=== PATIENT | female | born 1960 | race Caucasian/White ===

== ENCOUNTER 2017-08-24 11:46 | Day surgery (SDC) | payer BC ==
[~2017-08-24 11:46] MED LIST: ACETAMINOPHEN 1,000 MG/100 ML BTL IV ONE; FAMOTIDINE 20MG TABLET PO ONE; MECLIZINE 25 MG TABLET PO ONE; METOCLOPRAMIDE 10 MG TABLET PO ONE
[2017-08-24] MEDS ORDERED: CELECOXIB 100 MG CAPSULE PO ONE (11:47)
[2017-08-24] MEDS ORDERED: *PACU ONLY* KETAMINE HCL 10 MG/ML (20ML) VIAL IV ONE (11:47)
[2017-08-24] MEDS ORDERED: LABETALOL HCL 5MG/ML, 20ML VIAL IV ONE (11:47)
[2017-08-24] MEDS ORDERED: BUPIVACAINE 0.25% W/EPI MPF 30ML VIAL IVP ONE (11:47)
[2017-08-24] MEDS ORDERED: SCOPOLAMINE 1 PATCH TDSY TD ONE (11:47)
[2017-08-24] MEDS ORDERED: PROPOFOL 10 MG/ML VIAL IV ONE (11:47)
[2017-08-24] MEDS ORDERED: LIDOCAINE 2% MDV (20MG/ML) 20ML VIAL IV ONE (11:47)
--- NOTE | 2017-08-25 12:40 | Operative Note ---
DATE OF SERVICE: 08/24/2017. DATE OF SURGERY: 08/24/2017. Surgeon: Jose Luis Boles DO. Referring Physician: Talon Elizalde DO. PREOPERATIVE DIAGNOSES: 1. Torn medial meniscus of the left knee. 2. Chondromalacia of the left knee. POSTOPERATIVE DIAGNOSES: 1. Torn medial and lateral meniscus, left knee. 2. Chondromalacia, medial femoral condyle, lateral femoral condyle, and patella, left knee. OPERATION: 1. Medial and lateral meniscectomy, left knee. 2. Arthroscopic chondroplasty, medial femoral condyle, lateral femoral condyle, patella, left knee. PROCEDURE: This 57-year-old female was taken to the operating room and placed in the supine position on the operating room table. General anesthesia was performed. The left lower extremity was elevated. It was exsanguinated and the tourniquet inflated to 300 mmHg. An arthroscopic knee gregory applied. Left knee prepped, cleansed, and draped in the usual sterile fashion. An inferolateral portal was established with a 4 mm arthroscope, and initial evaluation of the joint demonstrated normal appearance of the suprapatellar pouch, but she did have rather extensive grade 3 changes noted to the patella with the trochlea being relatively normal, with a significant amount of loose, fragmented articular cartilage being seen on the patella. Required chondroplasty, and this was performed to stabilize the articular cartilage there. The medial compartment was entered, and a degenerative type tear of the posterior horn of the medial meniscus was present, and that was resected with a rotating shaver and basket forceps. We resected to the apex of the tear, which was about 3, possibly 4 mm deep, and then smoothed and tapered in each direction to restore stability to the remainder of the meniscus. The weightbearing surface of the medial femoral condyle demonstrated grade 2 changes with loose fragments of articular cartilage being present. This went all the way from the meniscal rest until as far back as could be visualized, and after smoothing it over, it appeared to be satisfactory. The intercondylar notch was examined and found to be normal. The lateral compartment was entered, and grade 2 chondromalacia of the weightbearing surface of the lateral femoral condyle was also present. This was a small lesion, being approximately a cm and a half in diameter. This was smoothed with the rotating shaver. The joint was then copiously irrigated and suctioned. The patient also had a small radial tear of the lateral meniscus at about the 2 or 3 o'clock position, and the tear was resected, and it was smoothed and contoured, then probed and confirmed to be stable. The joint was then copiously irrigated and suctioned. The instruments were removed. Portals were infiltrated with 0.25% Marcaine with epinephrine. Sterile dressings applied. Tourniquet was released and the patient taken to the recovery room in satisfactory condition. Gross Pathology: Patient demonstrated grade 2 chondromalacia throughout the knee. All surfaces demonstrating grade 2 changes. In addition, there was evidence of a tear of both the medial and lateral menisci of the left knee. GUZMAND
== END 2017-08-24 14:30 | disposition home or self-care (01) ==
LOC: SUR 11:46
PROVIDERS: ATTEND Orthopaedic Surgery
DX: S83.282A Other tear of lateral meniscus, current injury, left knee, initial encounter (principal); S83.242A Other tear of medial meniscus, current injury, left knee, initial encounter; M22.42 Chondromalacia patellae, left knee; I10 Essential (primary) hypertension; I48.2 Chronic atrial fibrillation; Z79.01 Long term (current) use of anticoagulants

== ENCOUNTER 2017-09-05 13:49 | Emergency (ER) | payer BC ==
--- NOTE | 2017-09-05 14:06 | Emergency Department Record ---
History of Present Illness - General Chief complaint: Lower Extremity Pain Stated complaint: RT LEG PAIN Time Seen by Provider: 09/05/17 14:00 Source: Patient Mode of Arrival: Ambulatory Limitations: No limitations - History of Present Illness Initial comments: 57 yo female presents with left thigh pain for starting yesterday. She has medial pain that is sharp. Several years ago she had a DVT after an ankle surgery. She was treated with Xarelto at that time. NO cough, chest pain or shortness of breath. Her surgery was on the left knee. She is doing very well on the left without any pain or swelling. No redness to the leg. MD Complaint: Extremity pain Onset/Timin -: Days(s) (2) Location: Right, Thigh History of Same: Yes Radiation: Proximal Quality: Aching Improves with: Immobilization Worsens with: Palpation Associated Symptoms: Denies other symptoms - Related Data Home Medications Medication Instructions Recorded Confirmed Last Taken Aspirin/Acetaminophen/Caffeine 1 each PO ASDIR 09/05/17 09/05/17 09/05/17 [Excedrin Extra Strength Caplet] Cholecalciferol (Vitamin D3) 50,000 unit PO DAILY 09/05/17 09/05/17 09/05/17 [Vitamin D] Hydrocodone/Acetaminophen [[place] 1 each PO ASDIR 09/05/17 09/05/17 09/05/17 7.5-325 Tablet] Metoprolol Succinate [Toprol Xl] 25 mg PO DAILY 09/05/17 09/05/17 09/05/17 Multivitamin [Daily Multiple 1 each PO DAILY 09/05/17 09/05/17 09/05/17 Vitamin] Omeprazole [Prilosec] 20 mg PO DAILY 09/05/17 09/05/17 09/05/17 Allergies Allergy/AdvReac Type Severity Reaction Status Date / Time levalbuterol [From Xopenex] Allergy SHORTNESS Verified 09/05/17 14:00 OF BREATH nitrous oxide Allergy NAUSEA AND Verified 09/05/17 14:00 VOMITING nortriptyline [From Pamelor] Allergy RAPID Verified 09/05/17 14:00 HEART RATE guaifenesin [From Entex LA] AdvReac PT UNSURE Verified 09/05/17 14:00 OF REACTION latex AdvReac RASH Verified 09/05/17 14:00 metronidazole [From Flagyl] AdvReac HEADACHE Verified 09/05/17 14:00 morphine AdvReac NAUSEA AND Verified 09/05/17 14:00 VOMITING phenylephrine [From Entex LA] AdvReac PT UNSURE Verified 09/05/17 14:00 OF REACTION phenylpropanolamine AdvReac PT UNSURE Verified 09/05/17 14:00 [From Entex LA] OF REACTION tramadol [From Ultram] AdvReac DIFFICULTY Verified 09/05/17 14:00 BREATHING warfarin [From Coumadin] AdvReac DIZZINESS Verified 09/05/17 14:00 Travel Screening - Travel/Exposure Within Last 30 Days Have you traveled within the last 30 days?: No - Travel/Exposure Within Last Year Have you traveled outside the [place] in the last year?: No - Additonal Travel Details Have you been exposed to anyone with a communicable illness?: No - Travel Symptoms Symptom Screening: None Review of Systems Constitutional: Denies: Chills, Fever, Weakness Eyes: Denies: Eye discharge ENT: Denies: Congestion, Throat pain Respiratory: Denies: Cough, Dyspnea, Hemoptysis Cardiovascular: Denies: Chest pain, Palpitations, Syncope Endocrine: Denies: Fatigue Gastrointestinal: Denies: Abdominal pain, Diarrhea, Nausea, Vomiting Genitourinary: Denies: Dysuria, Hematuria, Urgency Musculoskeletal: Reports: As per HPI, Arthralgia. Denies: Back pain, Myalgia Skin: Reports: Bruising (very minimal left knee after surgery). Denies: Change in color, Lesions, Rash Neurological: Denies: Headache, Numbness, Weakness Psychiatric: Denies: Anxiety Hematological/Lymphatic: Denies: Blood Clots, Easy bleeding, Easy bruising, Swollen glands Past Medical History - SOCIAL HISTORY Smoking Status: Never smoker Alcohol Use: Rare Drug Use: None - RESPIRATORY Hx Respiratory Disorders: Yes Hx Bronchitis: Yes Comment:: seasonal allergies - CARDIOVASCULAR Hx Cardio Disorders: Yes Hx Abnormal EKG: Yes Hx Cardiac Cath: Yes (2012 had HTN after steroid injection in neck;) Hx Deep Vein Thrombosis: Yes (after ankle surgery ; dvt; was on xarelto;) Hx Hypertension: Yes Hx Irregular Heartbeat: Yes (intermittent afib) Comment:: has rx for HTN if needed ; also has metoprolol if go into afib - NEURO Hx Neuro Disorders: Yes Hx Headaches: Yes Hx of Migraines: Yes (d/t neck ; triggered by foods -red wine) Hx Neuropathy: Yes (hands; due to neck) - GI Hx GI Disorders: Yes Hx Diverticulitis: Yes (hx of;) Hx Reflux: Yes (occassional) Hx Rectal Bleeding: Yes (hemmorhoids) Hx Ulcer: Yes (years ago; when on motrin daily) - Hx Genitourinary Disorders: Yes Hx Kidney Stones: Yes Hx UTI: Yes - ENDOCRINE Hx Endocrine Disorders: No - MUSCULOSKELETAL Hx Musculoskeletal Disorders: Yes Hx Arthritis: Yes (knee) 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 negative: Conjunctival injection, Scleral icterus - ENT ENT exam: Normal exam, Mucous membranes moist Ear exam: Normal external inspection Nasal Exam: Normal inspection Mouth exam: Normal external inspection - Neck Neck exam: Normal inspection, Full ROM. negative: Tenderness - Respiratory Respiratory exam: Normal lung sounds bilaterally. negative: Respiratory distress, Rhonchi, Stridor, Wheezes - Cardiovascular Cardiovascular Exam: Regular rate, Normal rhythm, Normal heart sounds Peripheral Pulses: 2+: Dorsalis Pedis (R) - GI/Abdominal GI/Abdominal exam: Soft. negative: Tenderness - Rectal Rectal exam: Deferred - exam: Deferred - Extremities Extremities exam: Normal inspection, Full ROM, Normal capillary refill, Tenderness (mildly tender mid medial right thigh), Other (left knee with very milf bruising, no swelling, no left calf tenderness or swelling). negative: Calf tenderness (no calf tenderness right or left), Joint swelling, Pedal edema - Neurological Neurological exam: Alert - Psychiatric Psychiatric exam: negative: Agitated, Anxious - Skin Skin exam: Dry, Intact, Normal color, Warm Course Vital Signs 09/05/17 13:51 Temperature 97.9 F Pulse Rate 104 H Respiratory 18 Rate Blood Pressure 160/92 Pulse Ox 97 - Reevaluation(s) Reevaluation #1: 09/05/17 15:25 The venous doppler was negative for DVT DC home with instructions for follow up and reasons to re-evaluation Disposition Disposition: Discharge Clinical Impression: Leg pain, right Disposition: Home, Self-Care Condition: (1) Good Instructions: Leg Pain (ED) Additional Instructions: Return or be seen if you have any swelling or new concerns Follow up with your doctor to recheck the discomfort you are having in your leg Forms: Patient Portal Access Time of Disposition: 15:27 Quality - Quality Measures Quality Measures: N/A - Blood Pressure Screening Does Patient Have Any of the Following: No Blood Pressure Classification: Hypertensive Reading Systolic Measurement: 149 Diastolic Measurement: 79 Screening for High Blood Pressure: < Pre-Hypertensive BP, F/U Documented > [ [id number]] Pre-Hypertensive Follow-up Interventions: Referral to alternative/primary care provider.
--- NOTE | 2017-09-06 07:19 | US VENOUS DOPPLER REPORT ---
EXAM: EMERGENCY RIGHT LOWER EXTREMITY VENOUS DOPPLER ULTRASOUND HISTORY: RIGHT THIGH PAIN, RECENT SURGERY ON LEFT KNEE, BUT WITH CRAMPING IN RIGHT LEG SINCE YESTERDAY. TECHNIQUE: Venous Doppler ultrasound of the right lower extremity was performed with the venous anatomy evaluated from the right inguinal region down to the ankle. Color flow and spectral analysis was utilized throughout, and in the thigh and popliteal region flow augmentation and compression maneuvers were utilized as well. Comparison: No prior venous Doppler ultrasound with which to compare. FINDINGS: The venous Doppler ultrasound of the right lower extremity appears negative. Flow is seen throughout. Compression and flow augmentation was demonstrated in the thigh and popliteal region as well. No DVT identified. IMPRESSION: THE VENOUS DOPPLER ULTRASOUND OF THE RIGHT LOWER EXTREMITY WAS NEGATIVE WITH NO DVT IDENTIFIED. JOB NUMBER: [id number] MTDD
== END 2017-09-05 15:38 | disposition home or self-care (01) ==
LOC: ER 13:49
DX: M79.651 Pain in right thigh (principal); I10 Essential (primary) hypertension; Z86.718 Personal history of other venous thrombosis and embolism
CPT/HCPCS: 99283

== ENCOUNTER 2017-09-14 11:45 | Day surgery (SDC) | payer BC ==
[2017-09-14] MEDS ORDERED: KETOROLAC 30 MG/ML VIAL IVP ONE (11:46)
[2017-09-14] MEDS ORDERED: PROPOFOL 10 MG/ML VIAL IV ONE (11:46)
[2017-09-14] MEDS ORDERED: ONDANSETRON HCL IV 4 MG/2 ML VIAL IVP ONE (11:46)
[2017-09-14] MEDS ORDERED: SCOPOLAMINE 1 PATCH TDSY TD ONE (11:46)
[2017-09-14] MEDS ORDERED: DEXAMETHASONE 4 MG/ML 1ML VIAL IVP ONE (11:46)
[2017-09-14] MEDS ORDERED: MIDAZOLAM HCL 2MG/2ML VIAL IV ONE (11:46)
[2017-09-14] MEDS ORDERED: BUPIVACAINE 0.75% W/EPI MPF 30ML VIAL IVP ONE (11:46)
[2017-09-14] MEDS ORDERED: LIDOCAINE 2% MDV (20MG/ML) 20ML VIAL IV ONE (11:46)
[2017-09-14] MEDS ORDERED: FENTANYL PF 100MCG/2ML VIAL IV ONE (11:46)
--- NOTE | 2017-09-15 13:10 | Operative Note ---
DATE OF SURGERY: 09/14/2017 PREOPERATIVE DIAGNOSES: 1. Torn medial meniscus of the right knee. 2. Chondromalacia of the right knee. POSTOPERATIVE DIAGNOSES: 1. Torn medial and lateral meniscus, right knee. 2. Chondromalacia of medial femoral condyle, lateral femoral condyle, and patella, right knee. OPERATIVE PROCEDURES: 1. Arthroscopic partial medial and lateral meniscectomy, right knee. 2. Arthroscopic chondroplasty medial femoral condyle, lateral femoral condyle, and patella, right knee. DESCRIPTION: This 57-year-old female was taken to the operating room and placed in the supine position on the operating room table where general anesthesia was induced. The right lower extremity was elevated and was exsanguinated and a tourniquet inflated to 300 mmHg. Arthroscopic knee gregory applied. Right knee prepped with Hibiclens and draped in the usual sterile fashion. An inferolateral portal, subsequently followed by an inferomedial portal was established and further initial evaluation of the joint, which demonstrated grade 3 chondromalacia of the patella mostly involving the median ridge and medial facet with the lateral facet being relatively spared. Chondroplasty was performed due to loose fragmented articular cartilage present there. The trochlea, however, appeared to be entirely normal with no evidence of defect seen. The medial compartment was entered and an area of about 1.5 cm in the center of the weightbearing surface showed an area of grade 2 chondromalacia with loose fragments of articular cartilage around the periphery. Chondroplasty was performed to stabilize the lesion. There was also a tear of the posterior horn of the medial meniscus. A degenerative-type tear was present. The basket forceps and rotating shaver were used to resect unstable fragments of the meniscus and then it was further smoothed and contoured with the rotating shaver. The tear of the meniscus was approximately 4 mm deep at its apex. The intracondylar notch was examined and found to be normal. The lateral compartment was entered and almost the exact-same findings were present on the lateral femoral condyle as medially, the lesion being about the same. Grade 2 changes with irregularity and unstable fragments of cartilage around the periphery. Chondroplasty was performed. There was also a tear in the lateral meniscus. This tear had its apex of approximately the 10 o'clock position. A radial-type tear was present, this tear being approximately 4-5 mm deep. We resected these and tapered in each direction, further smoothed and contoured with the rotating shaver, and no additional findings were present. No instability of the meniscus was noted at this point. The wound copiously irrigated with lactated Ringer's solution and the joint was suctioned. The portals infiltrated with 0.75% Marcaine with epinephrine. Sterile dressings applied. Tourniquet and knee gregory released, and the patient taken to the recovery room in satisfactory condition. GROSS PATHOLOGY: There were tears of both the medial and lateral meniscus as described above. Also, grade 2 chondromalacia of the patella, medial and lateral femoral condyles. CC: Ida SCOTT
== END 2017-09-14 15:25 | disposition home or self-care (01) ==
LOC: SUR 11:45
PROVIDERS: ATTEND Orthopaedic Surgery
DX: M23.221 Derangement of posterior horn of medial meniscus due to old tear or injury, right knee (principal); M23.200 Derangement of unspecified lateral meniscus due to old tear or injury, right knee; M22.41 Chondromalacia patellae, right knee; I48.2 Chronic atrial fibrillation; Z79.01 Long term (current) use of anticoagulants
CPT/HCPCS: J1885; J2405; J3490